=== PATIENT | female | born 1960 | race Asian ===

== ENCOUNTER → 2017-03-04 | Outpatient (CLI) | payer BC ==
[~2017-03-04] MED LIST: AMIODARONE HCL100 MG PO; BUSPAR5 MG PO; CIPRO250 MG PO; DULOXETINE HCL60 MG PO; GABAPENTIN300 MG PO; GLUCOSAMINE500 M1 PO; LASIX PO; LOTREL PO; ONE DAILY FOR1 EAC3 PO; PANTOPRAZOLE SO40 MG PO; POTASSIUM PO; SIMVASTATIN20 MG PO; ZOCOR5 MG PO
--- NOTE | ~2017-03-04 | MY29 ---
[facility] A Service of [facility] / [facility] RADIOLOGY TEXT RESULTS PATIENT: LA RENDON LOCATION: [facility] : 56 UNIT #: [id number] AGE: [address]: Leann Lima MD SEX: F ORDER DR: [id number] [facility] [address] [place], [place] [address] [id number] MR#: [id number] Acc #: [id number] NAME: LA RENDON : 1960 SEX: F STUDY DATE/TIME: 03/04/2017 12:01 UNIT: [facility] ROOM: STUDY DESCRIPTION: MY HALLEY SCREENING W/ CAD BILAT Attending Physician: Leann Lima M.D. Ordering Physician: Leann Lima M.D. Primary Care Physician: Leann Lima M.D. MEDICAL IMAGING REPORT This report is preliminary unless electronic signature is present EXAM Digital screening mammogram 03/04/2017 HISTORY 56-year-old woman, positive family history, aunt. Annual screening. COMPARISON STUDIES Mammograms 06/20/2010, 01/03/2015, 01/05/2016. FINDINGS Digital imaging of each breast was completed utilizing screening protocol. Review includes FDA-approved CAD device. Breast parenchyma is moderately dense and heterogeneous with subareolar duct prominence in each breast. I see no suspicious mass characteristics. There are no interval occurring microcalcifications and no suspicious architectural distortion. IMPRESSION Benign mammogram. Annual screening recommended. BIRADS: 2 Benign Finding. Patients over the age of 40 are entered into a reminder system with target due date for the next mammogram. A result letter will also be sent to the patient. Dictated by... Corky Fitzptarick M.D. THIS IS AN ELECTRONICALLY VERIFIED REPORT Corky Fitzpatrick M.D. at 03/05/2017 8:02 AM JBB/adama [facility] A Service of [facility] / [facility] RADIOLOGY TEXT RESULTS PATIENT: LA RENDON LOCATION: [facility] #: [id number] : 56 UNIT #: [id number] AGE: [address]: Leann Lima MD SEX: F ORDER DR: TD: 03/04/2017 18:13 JOB #: [id number] MEDICAL IMAGING REPORT Page 1 of 1 COPY
== END | disposition home or self-care (01) ==
LOC: CWCC 11:41
DX: Z12.31 Encounter for screening mammogram for malignant neoplasm of breast (principal); Z80.3 Family history of malignant neoplasm of breast
CPT/HCPCS: G0202